=== PATIENT | female | born 1965 ===

== ENCOUNTER 2018-12-12 09:11 | Outpatient (CLI) | payer OTHER | END 2018-12-12 09:12 | disposition home or self-care (01) | LOC: C.LAB 09:11 | DX: I10 Essential (primary) hypertension (principal); Z12.11 Encounter for screening for malignant neoplasm of colon ==

== ENCOUNTER 2018-12-21 09:29 | Outpatient (CLI) | payer OTHER | END 2018-12-21 09:30 | disposition home or self-care (01) | LOC: C.MAMMO 09:29 | DX: Z12.31 Encounter for screening mammogram for malignant neoplasm of breast (principal) ==

== ENCOUNTER 2019-01-10 09:47 | Outpatient (CLI) | payer OTHER | END 2019-01-10 09:48 | disposition home or self-care (01) | LOC: C.USIC 09:47 ==

== ENCOUNTER 2019-02-01 09:07 | Outpatient (CLI) | payer OTHER | END 2019-02-01 09:08 | disposition home or self-care (01) | LOC: C.LAB 09:07 | DX: R31.29 Other microscopic hematuria (principal) ==